=== PATIENT | male | born 1960 | race Caucasian/White ===

== ENCOUNTER 2024-04-05 14:16 | Emergency (ER) | payer OTHER, SELFPAY ==
[2024-04-05] VITALS (13 sets, daily range): BP systolic 109–137; BP diastolic 64–78; PULSE 68–110; RESP 13–21; TEMP 37.2; O2SAT 95–98; BMI 39.7
--- NOTE | 2024-04-05 14:32 | DI.RAD.S_ITS ---
PROCEDURE: XR CHEST 1V INDICATIONS: chest pain TECHNIQUE: One view of the chest was acquired. COMPARISON: None. FINDINGS: Surgical changes and devices: None. Lungs and pleura: Lungs are clear. No pleural effusions or pneumothorax. Mediastinum: Mediastinal contours appear normal. Heart size is normal. Bones and chest wall: No suspicious bony lesions. Overlying soft tissues appear unremarkable. IMPRESSION: No acute pulmonary process. Dictated by: Renae King M.D. on 04/05/2024 at 15:10 Approved by: Renae King M.D. on 04/05/2024 at 15:11
--- NOTE | 2024-04-05 14:32 | EKG_ITS ---
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
[2024-04-05 16:04] LABS: INR 1.2 (0.9-1.3); Prothrombin Time 14.1 SECONDS (9.4-12.5)
[2024-04-05 16:07] LABS: PTT Partial Thromboplastin Tim 30 SECONDS (25.1-36.5)
[2024-04-05 16:11] LABS: RBC Urine 0-1/HPF (0-5/HPF); Urine Volume 10mL (spun); WBC Urine 30-100/HPF (0-5/HPF)
[2024-04-05 16:12] LABS: Bacteria Urine Many (>30); Culture Indicated Urine Specimen Cultured; Squamous Epithelial Cell Urine 0-1 /HPF (0-5/HPF)
[2024-04-05 16:15] LABS: Alanine Aminotransferase 17 IU/L (<50); Albumin 4.3 g/dL (3.5-5.0); Albumin Globulin Ratio 1.4 (1.0-2.8); Alkaline Phosphatase 96 U/L (38-126); Aspartate Aminotransferase 31 IU/L (17-59); BUN Creatinine Ratio 13.4 (6-22); Bilirubin Total 1.9 mg/dL (0.2-1.3); Blood Urea Nitrogen 15 mg/dL (9-20); Calcium 9.3 mg/dL (8.4-10.2); Carbon Dioxide 20 mmol/L (22-32); Chloride 103 mmol/L (98-107); Creatine Kinase 818 U/L (55-170); Estimated Glomerular Filt Rate > 60 mL/min (>60); Glucose 132 mg/dL (80-110); HEMOLYSIS 35 (0-50); Lipase 18 U/L (23-300); Magnesium 2.1 mg/dL (1.6-2.3); Sodium 135 mmol/L (137-145); Total Protein 7.3 g/dL (6.3-8.2)
[2024-04-05 16:16] LABS: Hematocrit 42.4 % (41-53); Hemoglobin 14.5 g/dL (13.5-17.5); Mean Corpuscular HGB Conc 34.2 % (30-36); Mean Corpuscular Hemoglobin 30.8 PG (26-34); Mean Corpuscular Volume 90.1 fL (80-100); Platelet Count 142 X10^3/uL (150-400); Red Blood Cell Count 4.71 X10^6/uL (4.5-5.9); Red Cell Distribution Width 13.2 % (11.6-14.8); White Blood Cell Count 16.9 X10^3/uL (4.5-11.0)
[2024-04-05 16:18] LABS: Add Manual Diff / Slide Review YES
[2024-04-05 16:26] LABS: NT-proBNP (BNP-Adult 18+) 423 pg/mL (<125); Troponin I < 0.012 ng/mL (0.01-0.034)
[2024-04-05 16:46] LABS: Neutrophils Absolute Manual 14703 /uL (3000-5900); RBC Morphology Normal Morphology; Total Cells Counted 100
--- NOTE | 2024-04-05 18:01 | ED_ITS ---
HPI - Arrhythmia/Palpitations General Chief Complaint: Arrhythmia/Palpitations Stated Complaint: sent by [facility] for irregular heartbeat Time Seen by Provider: 04/05/24 17:57 Source: patient Mode of arrival: Ambulatory History of Present Illness HPI narrative: Patient 64-year-old male without significant past medical history presenting today with headache fever body aches and painful frequent urination ongoing for the last 2-3 days. He has previously had a UTI a few years ago not been admitted or septic but feels like that is what is happening again. He is chronic back pain no new back pain. He sometimes has some nausea vomiting he was retching last night. No real cough or sore throat. He is complaining of a headache now but is afebrile. He initially went to the walk-in clinic who thought that he had an irregular heartbeat and was sent to the emergency department. Related Data Previous Rx's Medication Instructions Recorded cephalexin 500 mg capsule 500 mg PO BID 7 days #14 caps 04/05/24 Allergies Allergy/AdvReac Type Severity Reaction Status Date / Time No Known Drug Allergies Allergy Verified 04/05/24 14:31 Patient History Social History Smoking Status: Never smoker Smoking Status: Never smoker alcohol intake frequency: holidays/special occasions only Substance Use Type: does not use Exam Initial Vital Signs Initial Vital Signs: Vital Signs Temperature 99.0 F 04/05/24 14:24 Pulse Rate 110 H 04/05/24 14:24 Respiratory Rate 16 04/05/24 14:24 Blood Pressure 136/75 04/05/24 14:24 Pulse Oximetry 97 04/05/24 14:24 Oxygen Delivery Method Room Air 04/05/24 14:24 GENERAL: Alert 64-year-old male not feel well and in no acute distress. HEENT: Head atraumatic,EOMI, pupils reactive, face symmetric, moist mucous membranes NECK: No vertebral tenderness no meningeal signs CARDIOVASCULAR: Regular rate and rhythm without murmurs, rubs or gallops. RESPIRATORY: Breath sounds equal bilaterally, no wheezes rales or rhonchi. ABDOMEN: Soft, nontender. Normoactive bowel sounds all 4 quadrants. No guarding or rebound. : No CVA tenderness EXTREMITIES: Normal range of motion, no clubbing or edema. Neurovascularly intact NEUROLOGICAL: Alert and oriented x4.Normal gait and speech. SKIN: Warm, dry, no laceration, no petechiae, no rashes or lesions. Course Orders Ordered: ED Orders 04/05/24 18:15 Respiratory Panel (Film Array) Stat 04/05/24 18:17 CT kidney ureter bladder (KUB) Stat 04/05/24 18:58 Blood Culture Stat 04/05/24 19:50 Lactate (Lactic Acid) Stat Discontinued Medications Acetaminophen (Acetaminophen 325 Mg Tablet) 975 mg PO NOW ONE Stop: 04/05/24 18:18 Last Admin: 04/05/24 18:29 Dose: 975 mg Documented By: MARIBEL Aspirin (Aspirin 81 Mg Chew Tab) 324 mg PO NOW ONE Stop: 04/05/24 14:33 Last Admin: 04/05/24 16:04 Dose: Not Given Documented By: GABRIEL Ceftriaxone Sodium 1,000 mg/ (Sodium Chloride) 100 mls @ 200 mls/hr IV NOW ONE Stop: 04/05/24 18:18 Last Infusion: 04/05/24 19:38 Dose: Infused Documented By: Admin: 04/05/24 18:59 Dose: 200 mls/hr Documented By: LISA Ketorolac Tromethamine (Ketorolac 30 Mg/Ml Vial) 15 mg IV NOW ONE Stop: 04/05/24 18:18 Last Admin: 04/05/24 18:29 Dose: 15 mg Documented By: MARIBEL Vital Signs Vital signs: Vital Signs - 8 hr 04/05/24 18:39 04/05/24 19:00 04/05/24 19:30 Pulse Rate 90 85 76 Respiratory Rate 21 14 17 Blood Pressure Pulse Oximetry 98 96 95 04/05/24 19:35 04/05/24 19:35 04/05/24 20:00 Pulse Rate 76 Respiratory Rate 15 Blood Pressure 121/68 109/66 Pulse Oximetry 96 04/05/24 20:00 Pulse Rate 68 Respiratory Rate 13 Blood Pressure Pulse Oximetry 96 MDM - Arrhythmia/Palpitations Lab Data 04/05/24 15:51 04/05/24 15:51 Labs: Lab Results 04/05/24 04/05/24 04/05/24 Range/Units 15:30 15:51 15:54 WBC 16.9 H (4.5-11.0) X10^3/uL RBC 4.71 (4.5-5.9) X10^6/uL Hgb 14.5 (13.5-17.5) g/dL Hct 42.4 (41-53) % MCV 90.1 (80-100) fL MCH 30.8 (26-34) PG MCHC 34.2 (30-36) % RDW 13.2 (11.6-14.8) % Plt Count 142 L (150-400) X10^3/uL Neut % (Auto) Not Reportable Lymph % (Auto) Not Reportable [place] % (Auto) Not Reportable Eos % (Auto) Not Reportable Baso % (Auto) Not Reportable Lymph # (Auto) Not Reportable [place] # (Auto) Not Reportable Baso # (Auto) Not Reportable Total Counted 100 Seg Neutrophils % 73.0 H (38-70) % Band Neutrophils % 14.0 H (3-7) % Lymphocytes % (Manual) 7.0 L (25-45) % Monocytes % (Manual) 5.0 (2-11) % Eosinophils % (Manual) 1.0 L (2-4) % Neutrophils # (Manual) 09738 H (1287-1294) /uL RBC Morphology Normal morphology PT 14.1 H (9.4-12.5) SECONDS INR 1.2 (0.9-1.3) APTT 30 (25.1-36.5) SECONDS Sodium 135 L (137-145) mmol/L Potassium 4.0 (3.4-5.1) mmol/L Chloride 103 (98-107) mmol/L Carbon Dioxide 20 L (22-32) mmol/L BUN 15 (9-20) mg/dL Creatinine 1.12 (0.66-1.25) mg/dL Estimated GFR > 60 (>60) mL/min BUN/Creatinine Ratio 13.4 (6-22) Glucose 132 H (80-110) mg/dL Lactate (0.7-2.1) mmol/L Calcium 9.3 (8.4-10.2) mg/dL Magnesium 2.1 (1.6-2.3) mg/dL Total Bilirubin 1.9 H (0.2-1.3) mg/dL AST 31 (17-59) IU/L ALT 17 (<50) IU/L Alkaline Phosphatase 96 (38-126) U/L Total Creatine Kinase 818 H (55-170) U/L Troponin I < 0.012 (0.01-0.034) ng/mL NT-Pro-B Natriuret Pep 423 H (<125) pg/mL Total Protein 7.3 (6.3-8.2) g/dL Albumin 4.3 (3.5-5.0) g/dL Globulin 3.0 (1.7-4.1) g/dL Albumin/Globulin Ratio 1.4 (1.0-2.8) Lipase 18 L (23-300) U/L Procalcitonin 0.845 H (<0.5) ng/mL Urine RBC 0-1/hpf (0-5/HPF) Urine WBC 30-100/hpf H (0-5/HPF) Ur Squamous Epith Cells 0-1 /hpf (0-5/HPF) Urine Bacteria Many (>30) H (None) Ur Culture Indicated? Specimen cultured Vol Urine Centrifuged 10ml (spun) Chlamy pneumoniae PCR (Not Detect) Adenovirus (PCR) (Not Detect) B. pertussis DNA (PCR) (Not Detect) B.parapertussis DNA PCR (Not Detecte) Coronavirus OC43 (PCR) (Not Detect) Coronavirus HKU1 (PCR) (Not Detect) Coronavirus 229E (PCR) (Not Detect) SARS-CoV-2 (PCR) (Not Detecte) Coronavirus NL63 (PCR) (Not Detect) Human Metapneumovir PCR (Not Detect) Influenza Type A (PCR) (Not Detect) Influenza Type B (PCR) (Not Detect) M. pneumoniae (PCR) (Not Detect) Parainfluenza 1 (PCR) (Not Detect) Parainfluenza 2 (PCR) (Not Detect) Parainfluenza 3 (PCR) (Not Detect) Parainfluenza 4 (PCR) (Not Detect) RSV (PCR) (Not Detect) Entero/Rhino (PCR) (Not Detect) 04/05/24 04/05/24 Range/Units 18:15 19:50 WBC (4.5-11.0) X10^3/uL RBC (4.5-5.9) X10^6/uL Hgb (13.5-17.5) g/dL Hct (41-53) % MCV (80-100) fL MCH (26-34) PG MCHC (30-36) % RDW (11.6-14.8) % Plt Count (150-400) X10^3/uL Neut % (Auto) Lymph % (Auto) [place] % (Auto) Eos % (Auto) Baso % (Auto) Lymph # (Auto) [place] # (Auto) Baso # (Auto) Total Counted Seg Neutrophils % (38-70) % Band Neutrophils % (3-7) % Lymphocytes % (Manual) (25-45) % Monocytes % (Manual) (2-11) % Eosinophils % (Manual) (2-4) % Neutrophils # (Manual) (0654-8419) /uL RBC Morphology PT (9.4-12.5) SECONDS INR (0.9-1.3) APTT (25.1-36.5) SECONDS Sodium (137-145) mmol/L Potassium (3.4-5.1) mmol/L Chloride (98-107) mmol/L Carbon Dioxide (22-32) mmol/L BUN (9-20) mg/dL Creatinine (0.66-1.25) mg/dL Estimated GFR (>60) mL/min BUN/Creatinine Ratio (6-22) Glucose (80-110) mg/dL Lactate 0.7 (0.7-2.1) mmol/L Calcium (8.4-10.2) mg/dL Magnesium (1.6-2.3) mg/dL Total Bilirubin (0.2-1.3) mg/dL AST (17-59) IU/L ALT (<50) IU/L Alkaline Phosphatase (38-126) U/L Total Creatine Kinase (55-170) U/L Troponin I (0.01-0.034) ng/mL NT-Pro-B Natriuret Pep (<125) pg/mL Total Protein (6.3-8.2) g/dL Albumin (3.5-5.0) g/dL Globulin (1.7-4.1) g/dL Albumin/Globulin Ratio (1.0-2.8) Lipase (23-300) U/L Procalcitonin (<0.5) ng/mL Urine RBC (0-5/HPF) Urine WBC (0-5/HPF) Ur Squamous Epith Cells (0-5/HPF) Urine Bacteria (None) Ur Culture Indicated? Vol Urine Centrifuged Chlamy pneumoniae PCR Not detected (Not Detect) Adenovirus (PCR) Not detected (Not Detect) B. pertussis DNA (PCR) Not detected (Not Detect) B.parapertussis DNA PCR Not detected (Not Detecte) Coronavirus OC43 (PCR) Not detected (Not Detect) Coronavirus HKU1 (PCR) Not detected (Not Detect) Coronavirus 229E (PCR) Not detected (Not Detect) SARS-CoV-2 (PCR) Not detected (Not Detecte) Coronavirus NL63 (PCR) Not detected (Not Detect) Human Metapneumovir PCR Not detected (Not Detect) Influenza Type A (PCR) Not detected (Not Detect) Influenza Type B (PCR) Not detected (Not Detect) M. pneumoniae (PCR) Not detected (Not Detect) Parainfluenza 1 (PCR) Not detected (Not Detect) Parainfluenza 2 (PCR) Not detected (Not Detect) Parainfluenza 3 (PCR) Not detected (Not Detect) Parainfluenza 4 (PCR) Not detected (Not Detect) RSV (PCR) Not detected (Not Detect) Entero/Rhino (PCR) Not detected (Not Detect) Urine Dip Bedside Urine Glucose Negative Bedside Urine Bilirubin - Negative Bedside Urine Ketone - Negative Urine Specific [place] 1.025 Bedside Urine Occult Blood +++ Bedside Urine pH 6.0 Bedside Urine Protein ++ 100 Bedside Urine Urobilinogen +/- 1mg Bedside Urine Nitrite + Positive Bedside Urine Leukocytes + 70 Esterase Imaging Data Chest x-ray: Radiologist's Impresson: PROCEDURE: XR CHEST 1V INDICATIONS: chest pain TECHNIQUE: One view of the chest was acquired. COMPARISON: None. FINDINGS: Surgical changes and devices: None. Lungs and pleura: Lungs are clear. No pleural effusions or pneumothorax. Mediastinum: Mediastinal contours appear normal. Heart size is normal. Bones and chest wall: No suspicious bony lesions. Overlying soft tissues appear unremarkable. IMPRESSION: No acute pulmonary process. Dictated by: Renae King M.D. on 04/05/2024 at 15:10 CT scan - abdomen/pelvis: Radiologist's Impresson: PROCEDURE: CT KIDNEY URETER BLADDER (KUB) INDICATIONS: sepsis uti TECHNIQUE: Axial sections were acquired from the lung bases to the pubic symphysis. Coronal and sagittal reformats were performed. For radiation dose reduction, the following was used: automated exposure control, adjustment of mA and/or kV according to patient size. COMPARISON: None. FINDINGS: Image quality: Diagnostic. Lower Chest: No significant findings. URINARY: Right Kidney: Punctate nonobstructive calcification. Right Ureter: No hydroureter. Left Kidney: No stones or hydronephrosis. Left Ureter: No hydroureter. Bladder: Air is present in the non dependent bladder. ABDOMEN: Liver: No contour-deforming solid mass. Steatosis. Gallbladder: Multiple luminal stones. There is an overall appearance of wall thickening. Biliary ducts: No biliary dilation. Pancreas: No ductal dilation. Spleen: Size is within normal limits. Adrenal Glands: No adrenal nodules. Stomach and Bowel: Normal colonic caliber, without significant wall thickening. Diverticula without inflammatory change. Peritoneum: No abnormal intraperitoneal fluid. No free air. Ventral Wall: No hernia. Abdominal Nodes: No enlarged retroperitoneal or mesenteric lymph nodes. Vessels: Aorta and inferior vena cava are normal in size. PELVIS: Pelvic Organs: Prostate gland is prominent with calcifications. Pelvic Nodes: Unremarkable. Miscellaneous: Fat containing left greater than right inguinal hernias are seen. Bones: Unremarkable. IMPRESSION: Punctate nonobstructing right renal calcification. Numerous stones within the gallbladder with possible wall thickening. Right upper quadrant ultrasound is recommended for further evaluation. Diverticulosis. Dictated by: Renae King M.D. on 04/05/2024 at 18:52 ECG Data Attestation: I personally reviewed and interpreted this ECG as follows: Interpretation: Normal sinus rhythm rate 114 OK interval 156 QRS [address] changes no PVCs no PACs MDM Narrative Medical decision making narrative: MDM CC: Headache painful frequent urination Complicating co-morbidities: Does not see doctors Medical records reviewed: Walk-in clinic record reviewed Differential considered: Sepsis UTI meningitis a arrhythmia Exam documented above, pertinent findings include: Alert male appears not feel well but no meningeal signs no focal deficits no significant flank pain breath sounds clear and equal Lab Test results independently reviewed as above. Pertinent findings: WBC 16.9 with left shift, bilirubin 1.9 Sodium 135 potassium 4.0 chloride 103 carbon dioxide 20 BUN 15 creatinine 1.1 CPK 818 troponin negative BNP 423 Urine positive for trace leukocytes and bacteria Independently reviewed EKG as above no ischemia no PA-C Imaging studies independently reviewed: Chest x-ray No pneumonia CT punctate right renal no ureteral stones, gallstones also present Consultations: None Treatments: Tylenol Toradol Rocephin Re-evaluations: Patient up to the restroom he remains hemodynamically stable no significant pain Discussion: Patient is 64-year-old male presenting today with and will frequent urination feels similar to prior UTI. He was found to have arrhythmia at the walk-in clinic so he was sent here. No significant arrhythmia here some PACs and PVCs occasionally. Urinalysis is consistent with a UTI he has significant leukocytosis 16.9, lactate was not initially added to blood work so needed to be added and then he was a difficult draw lactate finally done at 7:50 p.m. in his 0.7 Patient has no sign of severe sepsis, does not require sepsis fluids. Patient is given 1 dose of Rocephin here in the ED is feeling little bit better with Toradol and Tylenol. Patient is appropriate for outpatient treatment at this time Discharge Plan Departure Patient Disposition: Home Clinical Impression: Acute UTI, Kidney stones Instructions: DI for Urinary Tract Infection (UTI) Activity Restrictions/Additional Instructions: *You have been diagnosed with UTI *What to do: Increase fluids Tylenol Motrin as needed for pain *Continue to take medications as directed Cephalexin 500 mg twice a day for 7 days sent to [facility] in [place] *Follow up with your primary care provider in 2-3 days or call [phone] *Return to ER if you should have increasing confusion back pain nausea vomiting [or] any new, worsening or concerning symptoms Prescriptions: New cephalexin 500 mg capsule 500 mg PO BID 7 Days Qty: 14 0RF Referrals: Miscellaneous,DoctorMD [Primary Care Provider] - Stand Alone Forms: Patient Portal/API
--- NOTE | 2024-04-05 18:17 | DI.CT.S_ITS ---
PROCEDURE: CT KIDNEY URETER BLADDER (KUB) INDICATIONS: sepsis uti TECHNIQUE: Axial sections were acquired from the lung bases to the pubic symphysis. Coronal and sagittal reformats were performed. For radiation dose reduction, the following was used: automated exposure control, adjustment of mA and/or kV according to patient size. COMPARISON: None. FINDINGS: Image quality: Diagnostic. Lower Chest: No significant findings. URINARY: Right Kidney: Punctate nonobstructive calcification. Right Ureter: No hydroureter. Left Kidney: No stones or hydronephrosis. Left Ureter: No hydroureter. Bladder: Air is present in the non dependent bladder. ABDOMEN: Liver: No contour-deforming solid mass. Steatosis. Gallbladder: Multiple luminal stones. There is an overall appearance of wall thickening. Biliary ducts: No biliary dilation. Pancreas: No ductal dilation. Spleen: Size is within normal limits. Adrenal Glands: No adrenal nodules. Stomach and Bowel: Normal colonic caliber, without significant wall thickening. Diverticula without inflammatory change. Peritoneum: No abnormal intraperitoneal fluid. No free air. Ventral Wall: No hernia. Abdominal Nodes: No enlarged retroperitoneal or mesenteric lymph nodes. Vessels: Aorta and inferior vena cava are normal in size. PELVIS: Pelvic Organs: Prostate gland is prominent with calcifications. Pelvic Nodes: Unremarkable. Miscellaneous: Fat containing left greater than right inguinal hernias are seen. Bones: Unremarkable. IMPRESSION: Punctate nonobstructing right renal calcification. Numerous stones within the gallbladder with possible wall thickening. Right upper quadrant ultrasound is recommended for further evaluation. Diverticulosis. Dictated by: Renae King M.D. on 04/05/2024 at 18:52 Approved by: Renae King M.D. on 04/05/2024 at 18:54
[2024-04-05] MEDS: KETOROLAC 30 MG/ML VIAL 15 MG IV (18:29)
[2024-04-05] MEDS: ACETAMINOPHEN 325 MG TABLET 975 MG PO (18:29)
[2024-04-05] MEDS: cefTRIAXone 1,000 MG in SODIUM CHLORIDE 0.9% 100 ML 200 MG IV (18:59)
[2024-04-05 19:06] LABS: Adenovirus Not Detected (Not Detect); B. parapertussis Not Detected (Not Detecte); Bordetella pertussis Not Detected (Not Detect); Chlamydophila pneumoniae Not Detected (Not Detect); Coronavirus 229E Not Detected (Not Detect); Coronavirus HKU1 Not Detected (Not Detect); Coronavirus NL 63 Not Detected (Not Detect); Coronavirus OC43 Not Detected (Not Detect); Human Metapneumovirus Not Detected (Not Detect); Human Rhinovirus/Enterovirus Not Detected (Not Detect); Influenza A Not Detected (Not Detect); Influenza B Not Detected (Not Detect); Mycoplasma pneumoniae Not Detected (Not Detect); Parainfluenza Virus 1 Not Detected (Not Detect); Parainfluenza Virus 2 Not Detected (Not Detect); Parainfluenza Virus 3 Not Detected (Not Detect); Parainfluenza Virus 4 Not Detected (Not Detect); Respiratory Syncytial Virus Not Detected (Not Detect); SARS- CoV-2 Not Detected (Not Detecte)
[2024-04-05 19:46] LABS: Procalcitonin 0.845 ng/mL (<0.5)
[2024-04-05 20:11] LABS: Lactate (Lactic Acid) 0.7 mmol/L (0.7-2.1)
== END 2024-04-05 20:36 | disposition home or self-care (01) ==
PROVIDERS: Student in an Organized Health Care Education/Training Program; Emergency Provider Emergency Medicine
DX: N20.0 Calculus of kidney (principal); N39.0 Urinary tract infection, site not specified; R50.9 Fever, unspecified; R30.0 Dysuria; R00.2 Palpitations; Z11.52 Encounter for screening for COVID-19
CPT/HCPCS: 36415; 71045; 74176; 80053; 81003; 81015; 82550; 83605; 83690; 83735; 83880; 84145; 84484; 85007; 85025; 85610; 85730; 87040; 87077; 87086; 87186; 87633; 93005; 96365; 96375; 99285; J0696; J1885